=== PATIENT | female | born 1965 | race Caucasian/White ===

== ENCOUNTER 2018-09-17 22:25 | Observation (INO) ==
[2018-09-17 23:49] LABS: Bilirubin,Urine Negative (Negative); Blood,Urine Negative (Negative); Clarity,Urine Clear (Clear); Color,Urine Yellow (Yellow); Glucose,Urine (UA) Normal (Normal); Ketones,Urine Negative (Negative); Leukocyte Esterase,Urine Negative (Negative); Nitrite,Urine Negative (Negative); PH,Urine 6.5 pH Units (5.0-8.0); Protein,Urine Negative (Neg-Trace); Specific Gravity,Urine < 1.005 (1.010-1.025); Urobilinogen,Urine Normal (Normal)
[2018-09-18 00:30] LABS: Basophils # 0.1 K/mcL (0.0-0.2); Basophils % 0.7 %; Eosinophils # 0.2 K/mcL (0.0-0.6); Eosinophils % 1.5 %; Hematocrit 42.3 % (35.3-44.9); Hemoglobin 15.2 g/dL (11.5-15.4); Immature Granulocytes % 0.4 % (0-4); Lymphocytes # 1.6 K/mcL (0.6-4.6); Lymphocytes % 15.2 %; Mean Corpuscular HGB Conc 35.9 g/dL (31.6-35.5); Mean Corpuscular Hemoglobin 33.8 pg (28.0-33.3); Mean Platelet Volume 10.4 fL (9.4-12.4); Monocytes # 0.7 K/mcL (0.0-1.3); Monocytes % 6.6 %; Neutrophils # 8.1 K/mcL (1.6-8.9); Platelet Count 224 K/mcL (140-400); Red Cell Distribution Width 11.2 % (11.5-14.5); Segmented Neutrophils % 75.6 %
[2018-09-18] MEDS ORDERED: Ondansetron ODT 4 MG TAB.RAPDIS SL ONE (00:48)
[2018-09-18] MEDS ORDERED: OXYCODONE Oral CONC 10 MG/0.5 ML ORAL.SYG SL ONE (00:48)
[2018-09-18 00:50] LABS: Alanine Aminotransferase 16 Units/L (7-52); Albumin 4.2 g/dL (3.5-5.7); Albumin/Globulin Ratio 1.8 (1.1-2.2); Alkaline Phosphatase 101 Units/L (34-104); Aspartate Amino Transferase 17 Units/L (13-39); BUN/Creatinine Ratio 12 (6-26); Bilirubin,Direct 0.1 mg/dL (0.0-0.2); Bilirubin,Indirect 0.5 mg/dL (0.0-1.2); Bilirubin,Total 0.6 mg/dL (0.3-1.0); Blood Urea Nitrogen 6 mg/dL (6-20); Calcium 9.1 mg/dL (8.6-10.3); Carbon Dioxide 20 mEq/L (23-29); Chloride 93 mEq/L (98-107); Globulin 2.4 g/dL (2.4-3.5); Glucose 150 mg/dL (70-105); Lipase 16 Units/L (11-82); Osmolality,Calculated 252 (280-300); Potassium 4.1 mEq/L (3.5-5.1); Sodium 121 mEq/L (136-145); Total Protein 6.6 g/dL (6.4-8.9); eGFR For Non-African Americans > 60 (> 60)
--- NOTE | 2018-09-18 00:51 | Emergency Department Note ---
Disposition Clinical Impression: Hyponatremia Disposition: Admitted As Inpatient Condition: Good Time of Disposition: 02:45 General Adult HPI - General Chief complaint: ED General Medical Stated complaint: "Um Body Aches" Time Seen by Provider: 09/17/18 22:55 Source: patient Limitations: no limitations Nursing Notes Reviewed: Yes Vital Signs Reviewed: Yes - History of Present Illness HPI Narrative: 53-year-old female smoker presents with complaints of nausea, vomiting, fever, abdominal pain. She states symptoms started yesterday she had an episode of vomiting and is 102 fever. Today her vomiting and nausea have improved she only had 1 small episode this morning. However she started having body aches which prompted her visit to the emergency department. She does describe some abdominal bloating after eating, and mild abdominal pain. She mentioned she has had a worsening cough that has been dry. She does mention she is been increasing her fluids because she thinks this might be flu, and she has had increased urination, but she denies any flank pain dysuria, vaginal bleeding, diarrhea or bloody stools. Pain Scale: 7 - Related Data Home Medications Medication Instructions Recorded Confirmed Atorvastatin Calcium [Lipitor] 20 mg PO DAILY 03/03/16 09/18/18 Citalopram Hydrobromide [Celexa] 20 mg PO DAILY 03/03/16 09/18/18 Losartan [Cozaar] 25 mg PO DAILY 03/03/16 09/18/18 metFORMIN [Glucophage] 500 mg PO DAILY 03/03/16 09/18/18 Ibuprofen 400 mg PO BID 07/02/18 09/18/18 Turmeric Root 07/02/18 Meclizine [Antivert] 12.5 mg PO TID PRN 09/18/18 09/18/18 Omeprazole [PriLOSEC] 20 mg PO DAILY 09/18/18 09/18/18 Allergies Allergy/AdvReac Type Severity Reaction Status Date / Time No Known Allergies Allergy Verified 09/17/18 22:39 All systems ED: reviewed and negative except as stated. Review of Systems: As Per HPI Constitutional: Denies: fever, chills, weakness Eyes: Denies: vision change ENT ED: Reports: as per HPI, throat pain Cardiovascular: Denies: chest pain, palpitations Respiratory: Denies: cough, dyspnea, wheezes Gastrointestinal: Reports: as per HPI Genitourinary: Reports: as per HPI Musculoskeletal: Denies: back pain Integumentary: Denies: rash Neurological: Reports: as per HPI Psychiatric: Denies: anxiety Endocrine: Denies: fatigue Hematological/Lymphatic: Denies: easy bleeding Allergic/Immunologic: Denies: facial swelling Past Medical History - Past Medical History Medical history: Reports: diabetes, hypertension Psychiatric history: Reports: no psych history - Social History Smoking Status: Current every day smoker Smokeless Tobacco Status: No Alcohol use: Reports: occasionally Drug use: Reports: none Physical Exam - General Limitations: no limitations General appearance: alert, in no apparent distress - Head Head exam: normocephalic - Eye Eye exam: Present: EOMI - ENT ENT exam: mucous membranes moist - Neck Neck exam: Present: full ROM. Absent: lymphadenopathy - Chest Chest inspection: Present: symmetric chest wall rise - Respiratory Respiratory exam: Present: normal lung sounds bilaterally. Absent: respiratory distress - Cardiovascular Cardiovascular exam: Present: regular rate, normal rhythm - Abdominal Exam Abdominal exam: Present: soft, Non-Tender - Extremities Exam Extremities exam: Present: normal inspection, full ROM, normal capillary refill - Back Exam Back exam: Present: full ROM - Neurological Exam Neurological exam: Present: alert - Psychiatric Psychiatric exam: Present: normal affect, normal mood - Skin Skin exam: Present: warm, dry, intact, normal color. Absent: rash, cyanosis, diaphoresis Course Course Narrative: 53-year-old female presents with generalized body aches, and episode of nausea and vomiting yesterday, and 102 fever. She does mention she is currently n auseous and describes abdominal pressure and bloating and increased polyuria. Her vitals at triage hypertensive slightly, otherwise are within normal limits. Patient seen and examined. she appears uncomfortable but no acute distress. Patient was evaluated for right upper quadrant pain last year, she had unremarkable CT scan, and HIDA scan. She does mention she has had intermittent headaches, gradual in onset. I have ordered her pain medicines, and antiemetics. We will plan for repeat exam, blood work. Flu swab for muscle aches fever. CK ordered for muscle aches. - Reevaluation(s) Reevaluation #1: Patient's flu swab negative. No evidence of UTI. lab work shows sodium of 121, normal creatine kinase. Discussed with Dr. Evans, who advised for admission for hyponatremia. Fluids ordered. Time: 01:53 Reevaluation #2: Dr. Evans discussed patient with hospitalist Dr. Kern, who accepted patient. Nicotine patch ordered and toradol for headache. Time: 02:37 Vital Signs Temperature 97.8 F 09/17/18 22:39 Pulse Rate 87 09/17/18 22:39 Respiratory Rate 16 09/17/18 22:39 Blood Pressure 155/95 09/17/18 22:39 O2 Sat by Pulse Oximetry 96 09/17/18 22:39 Temperature 98 F 09/18/18 04:14 Pulse Rate 73 09/18/18 04:14 Respiratory Rate 16 09/18/18 04:14 Blood Pressure 158/82 09/18/18 04:14 O2 Sat by Pulse Oximetry 95 09/18/18 04:14 Oxygen Delivery Oxygen Delivery Room Air Medical Decision Making - MDM Narrative Medical decision making narrative: Laboratory Tests 09/17/18 09/18/18 09/18/18 23:34 00:05 00:05 WBC 10.8 RBC 4.50 Hgb 15.2 Hct 42.3 MCV 94.0 MCH 33.8 H MCHC 35.9 H RDW 11.2 L Plt Count 224 MPV 10.4 Immature Gran % 0.4 Seg Neutrophils % 75.6 Lymphocytes % 15.2 Monocytes % 6.6 Eosinophils % 1.5 Basophils % 0.7 Neutrophils # 8.1 Lymphocytes # 1.6 Monocytes # 0.7 Eosinophils # 0.2 Basophils # 0.1 Sodium 121 L Potassium 4.1 Chloride 93 L Carbon Dioxide 20 L BUN 6 Creatinine 0.49 L Est GFR ( Amer) > 60 Est GFR (Non-Af Amer) > 60 BUN/Creatinine Ratio 12 Glucose 150 H Calculated Osmolality 252 L Calcium 9.1 Total Bilirubin 0.6 Direct Bilirubin 0.1 Indirect Bilirubin 0.5 AST 17 ALT 16 Alkaline Phosphatase 101 Creatine Kinase 104 Serum Total Protein 6.6 Albumin 4.2 Globulin 2.4 Albumin/Globulin Ratio 1.8 Lipase 16 Urine Color Yellow Urine Clarity Clear Urine pH 6.5 Ur Specific [place] < 1.005 L Urine Protein Negative Urine Glucose (UA) Normal Urine Ketones Negative Urine Blood Negative Urine Nitrite Negative Urine Bilirubin Negative Urine Urobilinogen Normal Ur Leukocyte Esterase Negative Ur Culture Indicated? NO Chest X-Ray 09/18/18 00:46 IMPRESSION: Negative portable chest. D/ / Albin Talbot MD / Albin Talbot MD Interpreting Provider: Albin Talbot MD - Lab Data Lab results reviewed: Yes I reviewed the patient's lab results. Result diagrams: 09/18/18 00:05 09/18/18 00:05 Lab Results 09/17/18 09/17/18 09/17/18 Range/Units 23:34 23:34 23:34 WBC (4.3-11.1) K/mcL RBC (3.82-4.97) M/mcL Hgb (11.5-15.4) g/dL Hct (35.3-44.9) % MCV (83.0-100.0) fL MCH (28.0-33.3) pg MCHC (31.6-35.5) g/dL RDW (11.5-14.5) % Plt Count (140-400) K/mcL MPV (9.4-12.4) fL Immature Gran % (0-4) % Seg Neutrophils % % Lymphocytes % % Monocytes % % Eosinophils % % Basophils % % Neutrophils # (1.6-8.9) K/mcL Lymphocytes # (0.6-4.6) K/mcL Monocytes # (0.0-1.3) K/mcL Eosinophils # (0.0-0.6) K/mcL Basophils # (0.0-0.2) K/mcL Sodium (136-145) mEq/L Potassium (3.5-5.1) mEq/L Chloride (98-107) mEq/L Carbon Dioxide (23-29) mEq/L BUN (6-20) mg/dL Creatinine (0.60-1.20) mg/dL Est GFR ( Amer) (> 60) Est GFR (Non-Af Amer) (> 60) BUN/Creatinine Ratio (6-26) Glucose (70-105) mg/dL Calculated Osmolality (280-300) Calcium (8.6-10.3) mg/dL Total Bilirubin (0.3-1.0) mg/dL Direct Bilirubin (0.0-0.2) mg/dL Indirect Bilirubin (0.0-1.2) mg/dL AST (13-39) Units/L ALT (7-52) Units/L Alkaline Phosphatase (34-104) Units/L Creatine Kinase (30-223) Units/L Serum Total Protein (6.4-8.9) g/dL Albumin (3.5-5.7) g/dL Globulin (2.4-3.5) g/dL Albumin/Globulin Ratio (1.1-2.2) Lipase (11-82) Units/L Urine Color Yellow (Yellow) Urine Clarity Clear (Clear) Urine pH 6.5 (5.0-8.0) pH Units Ur Specific [place] < 1.005 L (1.010-1.025) Urine Protein Negative (Neg-Trace) mg/dL Urine Glucose (UA) Normal (Normal) mg/dL Urine Ketones Negative (Negative) mg/dL Urine Blood Negative (Negative) Urine Nitrite Negative (Negative) Urine Bilirubin Negative (Negative) Urine Urobilinogen Normal (Normal) mg/dL Ur Leukocyte Esterase Negative (Negative) Ur Culture Indicated? NO (NO) Urine Osmolality 173 L (300-1090) mOsm/kg Urine Creatinine 29 mg/dL Urine Sodium 36.9 mEq/L 09/18/18 09/18/18 Range/Units 00:05 00:05 WBC 10.8 (4.3-11.1) K/mcL RBC 4.50 (3.82-4.97) M/mcL Hgb 15.2 (11.5-15.4) g/dL Hct 42.3 (35.3-44.9) % MCV 94.0 (83.0-100.0) fL MCH 33.8 H (28.0-33.3) pg MCHC 35.9 H (31.6-35.5) g/dL RDW 11.2 L (11.5-14.5) % Plt Count 224 (140-400) K/mcL MPV 10.4 (9.4-12.4) fL Immature Gran % 0.4 (0-4) % Seg Neutrophils % 75.6 % Lymphocytes % 15.2 % Monocytes % 6.6 % Eosinophils % 1.5 % Basophils % 0.7 % Neutrophils # 8.1 (1.6-8.9) K/mcL Lymphocytes # 1.6 (0.6-4.6) K/mcL Monocytes # 0.7 (0.0-1.3) K/mcL Eosinophils # 0.2 (0.0-0.6) K/mcL Basophils # 0.1 (0.0-0.2) K/mcL Sodium 121 L (136-145) mEq/L Potassium 4.1 (3.5-5.1) mEq/L Chloride 93 L (98-107) mEq/L Carbon Dioxide 20 L (23-29) mEq/L BUN 6 (6-20) mg/dL Creatinine 0.49 L (0.60-1.20) mg/dL Est GFR ( Amer) > 60 (> 60) Est GFR (Non-Af Amer) > 60 (> 60) BUN/Creatinine Ratio 12 (6-26) Glucose 150 H (70-105) mg/dL Calculated Osmolality 252 L (280-300) Calcium 9.1 (8.6-10.3) mg/dL Total Bilirubin 0.6 (0.3-1.0) mg/dL Direct Bilirubin 0.1 (0.0-0.2) mg/dL Indirect Bilirubin 0.5 (0.0-1.2) mg/dL AST 17 (13-39) Units/L ALT 16 (7-52) Units/L Alkaline Phosphatase 101 (34-104) Units/L Creatine Kinase 104 (30-223) Units/L Serum Total Protein 6.6 (6.4-8.9) g/dL Albumin 4.2 (3.5-5.7) g/dL Globulin 2.4 (2.4-3.5) g/dL Albumin/Globulin Ratio 1.8 (1.1-2.2) Lipase 16 (11-82) Units/L Urine Color (Yellow) Urine Clarity (Clear) Urine pH (5.0-8.0) pH Units Ur Specific [place] (1.010-1.025) Urine Protein (Neg-Trace) mg/dL Urine Glucose (UA) (Normal) mg/dL Urine Ketones (Negative) mg/dL Urine Blood (Negative) Urine Nitrite (Negative) Urine Bilirubin (Negative) Urine Urobilinogen (Normal) mg/dL Ur Leukocyte Esterase (Negative) Ur Culture Indicated? (NO) Urine Osmolality (300-1090) mOsm/kg Urine Creatinine mg/dL Urine Sodium mEq/L Attestation Statement - Attestation Attestation: Dr. Evans note: Patient was seen in conjunction with KARLA Mak; please see his charting for complete documentation. I spent inhb-gb-dcin time with the patient and I agree with the patient's treatment and disposition. Progressive weakness and n/v for weeks; no focal neuro signs/sx; low Na+ noted; will require admission for treatment and further eval; accepted by Dr Greer s/p my conversation w/ him @ 2:20 a.m; condition improved; 1 liter of NS ordered;
[2018-09-18 01:05] LABS: Creatine Kinase 104 Units/L (30-223)
[2018-09-18] MEDS ORDERED: 0.9 % Sodium Chloride 1,000 ML IVC ONE ×2 (01:46→04:59)
[2018-09-18] MEDS ORDERED: Nicotine 7 MG PATCH.TD24 TD ONE (02:17)
[2018-09-18] MEDS ORDERED: Ketorolac 15 MG/ML VIAL IM ONE (02:38)
--- NOTE | 2018-09-18 03:27 | Internal Med History&Physical ---
<Paolo Ruiz - Last Filed: 09/18/18 05:29> Date of Encounter: 09/18/18 Time of Encounter: 03:57 Internal Medicine - H&P: HPI Admitted From: Emergency Dept History of present illness: 53-year-old female presenting with fever, abdominal pain, nausea, and vomiting. She has a history of diabetes, hypertension, appendectomy. Patient states symptoms started on Monday with nausea, vomiting, and abdominal pain. She had a temperature of 102 on Monday which resolved after taking aspirin. Patient states that her abdominal pain is located in the upper quadrants, with the right quadrant being more tender. Pain is rated a 10 out of 10 in a bandlike distribution. She has also endorsing pain in the right lower quadrants close to the right inguinal crease radiating to the right lower back. Patient denies any urinary symptoms including urinary frequency, urgency, pain with urination. The pain in this area is rated a 7 out of 10. Patient is hyponatremic at 121, urine osmolality 173, urine creatinine 29, urine sodium 36.9. An EGD chest x-ray was done showing no acute pathology. Urinalysis was negative for pathology. Influenza antigens are negative. Past Med Surg Social Fam HX - Past Medical History Medical history: diabetes, hypertension Psychiatric history: no psych history - Social History Smoking Status: Current every day smoker Smokeless Tobacco Status: No Alcohol use: occasionally Drug use: none Internal Medicine - H&P: Meds Atorvastatin Calcium [Lipitor] 20 mg PO DAILY 03/03/16 [History] Citalopram Hydrobromide [Celexa] 20 mg PO DAILY 03/03/16 [History] Losartan [Cozaar] 25 mg PO DAILY 03/03/16 [History] metFORMIN [Glucophage] 500 mg PO DAILY 03/03/16 [History] Ibuprofen 400 mg PO BID 07/02/18 [History] Turmeric Root 07/02/18 [History] Meclizine [Antivert] 12.5 mg PO TID PRN 09/18/18 [History] Omeprazole [PriLOSEC] 20 mg PO DAILY 09/18/18 [History] Allergy/AdvReac Type Severity Reaction Status Date / Time No Known Allergies Allergy Verified 09/17/18 22:39 All Systems PM: A 10-system review of systems was performed and is negative for pertinent findings except as documented above in the HPI. - Constitutional Constitutional: chills, fatigue, fever(s), malaise, weakness - Cardiovascular Cardiovascular ROS IM: no chest pain, no irregular heart rhythm, no palpitations - Respiratory Respiratory: cough (Patient has been having a cough for several weeks which she believes is unrelated to the current illness), no dyspnea, no pain on inspiration - Gastrointestinal Gastrointestinal: abdominal pain, no constipation, no diarrhea - Genitourinary Genitourinary: no hematuria, no urinary frequency, no urinary incontinence, no urinary urgency - Constitutional Vitals: Temp Pulse Resp BP Pulse Ox 97.8 F 67 18 148/87 95 09/17/18 22:39 09/18/18 02:55 09/18/18 02:55 09/18/18 02:55 09/18/18 02:55 General appearance: Present: cooperative, mild distress, A&O X 3, pleasant Exam: . - Head Head exam: Present: atraumatic, normal inspection - Eye Eye exam: Present: EOMI, normal appearance - Neck Neck exam general surgery: Present: supple, trachea midline - Respiratory Respiratory exam: Present: CTAB - Cardiovascular Cardiovascular exam: Present: RRR, +S1, +S2 - GI/Abdominal GI/Abdominal exam: Present: normal bowel sounds, soft, tenderness (Tenderness to palpation right upper quadrant and left upper quadrant. Right lower quadrant close to the right inguinal crease that radiates to the right lower back ). Absent: mass - Extremities Exam Extremities exam: Present: normal capillary refill, warm - Neurological Exam Neurological exam: Present: no focal deficits - Skin Skin exam: Present: dry, intact, warm Internal Med - H&P Results - Labs CBC & Chem 7: 09/18/18 00:05 09/18/18 00:05 Labs: Short CBC 09/18/18 Range/Units 00:05 WBC 10.8 (4.3-11.1) K/mcL Hgb 15.2 (11.5-15.4) g/dL Hct 42.3 (35.3-44.9) % Plt Count 224 (140-400) K/mcL Neutrophils # 8.1 (1.6-8.9) K/mcL BMP 09/18/18 00:05 Sodium 121 L Potassium 4.1 Chloride 93 L Carbon Dioxide 20 L BUN 6 Creatinine 0.49 L Glucose 150 H Calcium 9.1 Liver Function 09/18/18 Range/Units 00:05 Total Bilirubin 0.6 (0.3-1.0) mg/dL Direct Bilirubin 0.1 (0.0-0.2) mg/dL AST 17 (13-39) Units/L ALT 16 (7-52) Units/L Alkaline Phosphatase 101 (34-104) Units/L Albumin 4.2 (3.5-5.7) g/dL Urine 09/17/18 Range/Units 23:34 Urine Color Yellow (Yellow) Urine Clarity Clear (Clear) Urine pH 6.5 (5.0-8.0) pH Units Ur Specific [place] < 1.005 L (1.010-1.025) Urine Protein Negative (Neg-Trace) mg/dL Urine Glucose (UA) Normal (Normal) mg/dL - Impressions ITS Impressions Chest X-Ray 09/18/18 00:46 IMPRESSION: Negative portable chest. D/ / Albin Talbot MD / Albin Talbot MD Interpreting Provider: Albin Talbot MD - Assessment and plan (1) Abdominal pain Current Visit: Yes Status: Acute Assessment and plan: Patient presenting with upper quadrant abdominal pain especially in the right upper quadrant. Pain rated 10 on a 10, worsened with food. Patient still has her gallbladder. Lipase is normal. Considering gallbladder pathology. Patient also has right lower quadrant abdominal pain with history of abdominal surgery. Does not have her appendix. - CT abdomen without contrast ordered. - For pain management ordered oxycodone. Qualifiers: Qualified Code(s): R10.9 - Unspecified abdominal pain (2) DVT prophylaxis Current Visit: Yes Status: Acute Assessment and plan: Subcutaneous heparin (3) Hyponatremia Current Visit: Yes Status: Acute Assessment and plan: Patient has a sodium of 121, urine osmolality 173, urine creatinine 29, urine sodium 36.9. Fractional excretion of 0.5%. Was given 1 L normal saline and ED. -We will see how patient responds to liter of normal saline at ED. BMP ordered for 5 AM and 9 AM. - Trend BMP, urine sodium, urine osmolality - If repeat urine sodium is less than 40 and urine osmolality less than 100 patient has hypovolemic hyponatremia, and we will bolus another liter of normal saline. - If urine sodiums greater than 40 and urine osmolality greater than 100 we will evaluate for glucocorticoid deficiency with a.m. cortisol and ACTH stimulation test, and for hypothyroidism with TSH. - Time Spent With Patient Total time spent is greater than 50% in coordination of care (as documented) at patient's floor/unit and/or counseling patient: <Eliel Holloway Taty - Last Filed: 09/18/18 07:45> Date of Encounter: 09/18/18 Internal Medicine - H&P: HPI History of present illness: Ms. Brady is a 53 year old female All Systems PM: A 10-system review of systems was performed and is negative for pertinent findings except as documented above in the HPI. - Constitutional Vitals: Temp Pulse Resp BP Pulse Ox 98.2 F 74 17 103/61 94 09/18/18 07:27 09/18/18 07:27 09/18/18 07:27 09/18/18 07:27 09/18/18 07:27 Internal Med - H&P Results - Labs CBC & Chem 7: 09/18/18 00:05 09/18/18 00:05 Labs: Short CBC 09/18/18 Range/Units 00:05 WBC 10.8 (4.3-11.1) K/mcL Hgb 15.2 (11.5-15.4) g/dL Hct 42.3 (35.3-44.9) % Plt Count 224 (140-400) K/mcL Neutrophils # 8.1 (1.6-8.9) K/mcL BMP 09/18/18 00:05 Sodium 121 L Potassium 4.1 Chloride 93 L Carbon Dioxide 20 L BUN 6 Creatinine 0.49 L Glucose 150 H Calcium 9.1 Liver Function 09/18/18 Range/Units 00:05 Total Bilirubin 0.6 (0.3-1.0) mg/dL Direct Bilirubin 0.1 (0.0-0.2) mg/dL AST 17 (13-39) Units/L ALT 16 (7-52) Units/L Alkaline Phosphatase 101 (34-104) Units/L Albumin 4.2 (3.5-5.7) g/dL Urine 09/17/18 Range/Units 23:34 Urine Color Yellow (Yellow) Urine Clarity Clear (Clear) Urine pH 6.5 (5.0-8.0) pH Units Ur Specific [place] < 1.005 L (1.010-1.025) Urine Protein Negative (Neg-Trace) mg/dL Urine Glucose (UA) Normal (Normal) mg/dL - Impressions ITS Impressions Chest X-Ray 09/18/18 00:46 IMPRESSION: Negative portable chest. D/ / Albin Talbot MD / Albin Talbot MD Interpreting Provider: Albin Talbot MD - Time Spent With Patient Total time spent is greater than 50% in coordination of care (as documented) at patient's floor/unit and/or counseling patient: - Attending Attestation I saw and evaluated the patient. I reviewed the residents note, performed my own physical examination and agree with findings and plan as documented in the residents note. Patient seen and examined on 09/18/18. Patient presents with hyponatremia, and abdominal pain. Pain worse with food, lipase within normal limits. Will obtain CT this morning. Follow up results. Will also correct sodium carefully, will need repeat labs after IV fluids given in the ER. Patient currently not in distress, pain well controlled. Patient also diabetic, will monitor sugars Q6H, low dose sliding scale insulin as she is currently NPO due to nasuea. Continue to monitor.
[2018-09-18] MEDS ORDERED: Ondansetron 4 MG/2 ML VIAL IVP PRN (04:06)
[2018-09-18] MEDS ORDERED: Naloxone 0.4 MG/ML INJ IVP PRN (04:58)
[2018-09-18] MEDS ORDERED: D5% in Water 1,000 ML IVC PRN (05:00)
[2018-09-18] MEDS ORDERED: Dextrose Gel 15 GM/37.5 ML TUBE PO PRN ×2 (05:00)
[2018-09-18] MEDS ORDERED: *HR* Dextrose 50 % in Water (Syg) 50 ML SYRINGE IVP PRN (05:00)
[2018-09-18 05:05] LABS: Sodium, Urine 36.9 mEq/L
[2018-09-18] MEDS: Insulin LISPRO 300 UNITS/3 ML VIAL SQ SCH ×3 (06:34→17:04)
[2018-09-18] MEDS: *HR* Heparin 5,000 UNIT/ML VIAL SQ SCH ×2 (06:34→17:05)
[2018-09-18] MEDS ORDERED: 0.9 % Sodium Chloride 1,000 ML IVC SCH (08:00)
--- NOTE | 2018-09-18 08:05 | Event Note ---
Date of Encounter: 09/18/18 Time of Encounter: 08:00 53-year-old female presenting with fever, abdominal pain, nausea, and vomiting Plan Abd pain of unclear etiology. LFTs, Lipase WNL. CT abdomen and ultrasound negative. Patient says pain is chronic and has been experiencing it intermittently since 1998 post hysterectomy. Supportive care. Outpatient f/u Hyponatremia. Sodium on admission was 121. Obtain repeat TSH. Continue fluids with normal saline. Monitor sodium q 8-12hr
[2018-09-18] MEDS: OXYCODONE Oral CONC 10 MG/0.5 ML ORAL.SYG SL PRN ×2 (08:11→13:54)
[2018-09-18 09:10] LABS: BUN/Creatinine Ratio 10 (6-26); Blood Urea Nitrogen 6 mg/dL (6-20); Carbon Dioxide 25 mEq/L (23-29); Chloride 95 mEq/L (98-107); Glucose 132 mg/dL (70-105); Osmolality,Calculated 259 (280-300); Potassium 4.4 mEq/L (3.5-5.1); Sodium 125 mEq/L (136-145); eGFR For Non-African Americans > 60 (> 60)
[2018-09-18] MEDS ORDERED: Acetaminophen 325 MG TABLET PO PRN (17:29)
[2018-09-18] MEDS ORDERED: Insulin LISPRO 300 UNITS/3 ML VIAL SQ SCH (21:00)
[2018-09-19 04:56] LABS: Basophils # 0.1 K/mcL (0.0-0.2); Basophils % 1.3 %; Eosinophils # 0.2 K/mcL (0.0-0.6); Eosinophils % 3.1 %; Hematocrit 45.6 % (35.3-44.9); Hemoglobin 15.5 g/dL (11.5-15.4); Immature Granulocytes % 0.3 % (0-4); Lymphocytes # 1.7 K/mcL (0.6-4.6); Lymphocytes % 25.1 %; Mean Platelet Volume 10.9 fL (9.4-12.4); Monocytes # 0.7 K/mcL (0.0-1.3); Monocytes % 9.9 %; Neutrophils # 4.1 K/mcL (1.6-8.9); Platelet Count 218 K/mcL (140-400); Red Cell Distribution Width 11.5 % (11.5-14.5); Segmented Neutrophils % 60.3 %
[2018-09-19 05:22] LABS: BUN/Creatinine Ratio 16 (6-26); Blood Urea Nitrogen 11 mg/dL (6-20); Calcium 9.2 mg/dL (8.6-10.3); Carbon Dioxide 25 mEq/L (23-29); Chloride 106 mEq/L (98-107); Glucose 128 mg/dL (70-105); Magnesium 2.4 mg/dL (1.6-2.6); Osmolality,Calculated 281 (280-300); Phosphorous 4.7 mg/dL (2.7-4.5); Potassium 4.7 mEq/L (3.5-5.1); Sodium 135 mEq/L (136-145); eGFR For Non-African Americans > 60 (> 60)
[2018-09-19 06:59] VITALS: BP 109/71
[2018-09-19] MEDS: *HR* Heparin 5,000 UNIT/ML VIAL SQ SCH (07:28)
[2018-09-19] MEDS ORDERED: Insulin LISPRO 300 UNITS/3 ML VIAL SQ SCH ×2 (07:30)
[2018-09-19] MEDS ORDERED: Nicotine 7 MG PATCH.TD24 TD SCH (09:00)
--- NOTE | 2018-09-19 11:55 | Discharge Summary ---
Date of Encounter: 09/19/18 Time of Encounter: 11:55 - Discharge Diagnosis (1) Abdominal pain Priority: Primary Status: Acute Assessment and Plan: 53-year-old female presenting with fever, abdominal pain, nausea, and vomiting. She has a history of diabetes, hypertension, appendectomy. Patient states symptoms started on Monday with nausea, vomiting, and abdominal pain.Patient presenting with upper quadrant abdominal pain especially in the right upper quadrant. She had a CT abdomen and abdominal ultrasound done that both came back negative for any acute findings. LFTs/ lipase were also WNL. Patient notes pain is chronic and has been having it intermittently since she had a hysterectomy about 20 years ago. She has been referred to GI as an outpatient. She was also noted to be hyponatremic on admission likely secondary to dehydration and this was corrected with IV fluids Qualifiers: Qualified Code(s): R10.9 - Unspecified abdominal pain (2) Hyponatremia Priority: Primary Status: Acute Assessment and Plan: Patient has a sodium of 121, urine osmolality 173, urine creatinine 29, urine sodium 36.9. Fractional excretion of 0.5%. Was given 1 L normal saline and ED. -We will see how patient responds to liter of normal saline at ED. BMP ordered for 5 AM and 9 AM. - Trend BMP, urine sodium, urine osmolality - If repeat urine sodium is less than 40 and urine osmolality less than 100 patient has hypovolemic hyponatremia, and we will bolus another liter of normal saline. - If urine sodiums greater than 40 and urine osmolality greater than 100 we will evaluate for glucocorticoid deficiency with a.m. cortisol and ACTH stimulation test, and for hypothyroidism with TSH. (3) DVT prophylaxis Priority: Primary Status: Acute Assessment and Plan: Subcutaneous heparin Hospital course: Ms. Brady is a 53 year old female - Time Spent with Patient Total time spent providing and/or coordinating discharge services: - Discharge Medications Home Medications: Atorvastatin Calcium [Lipitor] 20 mg PO DAILY 03/03/16 [History] Citalopram Hydrobromide [Celexa] 20 mg PO DAILY 03/03/16 [History] Losartan [Cozaar] 25 mg PO DAILY 03/03/16 [History] metFORMIN [Glucophage] 500 mg PO DAILY 03/03/16 [History] Ibuprofen [Motrin] 800 mg PO Q8HR PRN 07/02/18 [History] Albuterol Sulfate [Albuterol Inhaler] 2 puff IH Q6H PRN 09/18/18 [History] Omeprazole [PriLOSEC] 20 mg PO DAILY 09/18/18 [History] Allergies/Adverse Reactions: Allergy/AdvReac Type Severity Reaction Status Date / Time No Known Allergies Allergy Verified 09/17/18 22:39 Date of admission: 09/18/18 03:41 Primary care physician: Kevan Braswell MD - Constitutional Vitals: Temp Pulse Resp BP Pulse Ox 98.1 F 79 16 109/71 92 09/19/18 06:53 09/19/18 06:53 09/19/18 06:53 09/19/18 06:53 09/19/18 06:53 General appearance: Present: cooperative, mild distress, A&O X 3, pleasant Exam: Gen - Awake, alert, oriented x 3, no acute distress HEENT - NCAT, PERRLA, EOMI, hearing grossly intact, oropharynx benign CV - RRR, normal S1 and S2, no M/R/G, no BLE edema Resp - Normal WOB, CTAB, no W/R/R GI - Soft, NT/ND, no masses, normal bowel sounds, Skin - Warm, dry, no rashes/lesions/ulcers Psych - Normal mood and affect, no depression or anxiety - Patient Status Disposition: Home, Self-Care Condition: Good - Discharge Instructions Follow Up With: [facility] [Provider Group] (web request has been sent. However if you do not hear from their office by the time of your appointment with your PCP please have your PCP refer you also to speed up the time frame. Thank you!) Kevan Braswell MD [Primary Care Provider] - 09/25/18 2:00 pm (If you do not hear from GI office by the time of this appointment please ask them for a referral to get you in faster. Thank you!)
== END 2018-09-19 11:45 | disposition home or self-care (01) ==
LOC: EMEROOARM 22:25 → 2ANU 22:25
PROVIDERS: ADMIT Pediatrics; ATTEND Pediatrics

== ENCOUNTER 2019-05-14 19:17 | Observation (INO) ==
--- NOTE | 2019-05-14 19:29 | Emergency Department Note ---
Disposition Clinical Impression: History of pancreatic cancer, Leukocytosis, Tachycardia, Hypotension, Elevated troponin, Weakness, Chronic diarrhea, Diabetes mellitus Disposition: Admitted As Inpatient Time of Disposition: 00:07 General Adult HPI - General Stated complaint: Diziness Time Seen by Provider: 05/14/19 19:29 - History of Present Illness HPI Narrative: 53-year-old female reports emergency department complaining of weakness. The patient describes some generalized tingling. She has a known history of pancreatic cancer and is undergoing chemotherapy. The patient has chronic nonbloody diarrhea. She has been feeling weaker over the last several days. She is not anticoagulated. There is no history of bleeding. The patient denies chest pain or shortness of breath no abdominal pain or vomiting. She has had no difficulty moving the arms or legs independently. No fevers coughs rashes or syncope. No headache neck stiffness convulsion or confusion no unilateral arm or leg weakness or numbness or speech or facial droop. The patient feels she may be dehydrated. She has had electrolyte imbalance in the past particularly when under chemotherapy. She is known to be diabetic. She reports her glucose is been about 110. - Related Data Home Medications Medication Instructions Recorded Confirmed Atorvastatin Calcium [Lipitor] 20 mg PO DAILY 03/03/16 09/18/18 Citalopram Hydrobromide [Celexa] 20 mg PO DAILY 03/03/16 09/18/18 Losartan [Cozaar] 25 mg PO DAILY 03/03/16 09/18/18 metFORMIN [Glucophage] 500 mg PO DAILY 03/03/16 09/18/18 Ibuprofen [Motrin] 800 mg PO Q8HR PRN 07/02/18 09/18/18 Albuterol Sulfate [Proventil 2 puff IH Q6H PRN 09/18/18 09/18/18 Inhaler] Omeprazole [PriLOSEC] 20 mg PO DAILY 09/18/18 09/18/18 Previous Rx's Medication Instructions Recorded Cyclobenzaprine [Flexeril] 10 mg PO TID #15 tablet 12/04/18 Diclofenac Sodium [Voltaren] 4 gm TP QID #100 gm 12/04/18 PredniSONE [Deltasone] 20 mg PO DAILY #12 tablet 12/04/18 Allergies Allergy/AdvReac Type Severity Reaction Status Date / Time No Known Allergies Allergy Verified 12/04/18 11:07 All systems ED: reviewed and negative except as stated. Past Medical History - Past Medical History Medical history: Reports: diabetes, hypertension, other Surgical history: Reports: appendectomy, hysterectomy Psychiatric history: Reports: no psych history - Social History Smoking Status: Current every day smoker Smokeless Tobacco Status: No Alcohol use: Reports: recent Drug use: Reports: none Physical Exam - General Limitations: no limitations General appearance: alert, in no apparent distress - Head Head exam: normocephalic (The patient is wearing a hat.) - Eye Eye exam: Present: normal appearance, PERRL, EOMI. Absent: scleral icterus, conjunctival injection, nystagmus - ENT ENT exam: normal exam, normal oropharynx, mucous membranes moist, TM's normal bilaterally, normal external ear exam - Neck Neck exam: Present: normal inspection, full ROM, trachea midline - Chest Chest inspection: Present: symmetric chest wall rise. Absent: tenderness - Respiratory Respiratory exam: Present: normal lung sounds bilaterally. Absent: respiratory distress, prolonged expiratory phase - Cardiovascular Cardiovascular exam: Present: normal rhythm, tachycardia - Abdominal Exam Abdominal exam: Present: soft, Non-Tender, normal bowel sounds. Absent: tenderness, distention, guarding, rebound, rigidity - Extremities Exam Extremities exam: Present: normal inspection, full ROM, normal capillary refill. Absent: tenderness, pedal edema, joint swelling, calf tenderness - Expanded Lower Extremity Exam Neurovascular/Tendon exam: Present: normal capillary refill. Absent: motor deficit, sensory deficit, tendon deficit, extremity cold to touch, pallor - Back Exam Back exam: Present: normal inspection, full ROM. Absent: tenderness, CVA tenderness (R), CVA tenderness (L), vertebral tenderness - Neurological Exam Neurological exam: Present: alert, oriented X3, CN II-XII intact. Absent: motor sensory deficit - Psychiatric Psychiatric exam: Present: normal affect, normal mood - Skin Skin exam: Present: warm, dry, intact, normal color Course Vital Signs Temperature 98.9 F 05/14/19 19:25 Pulse Rate 111 05/14/19 19:25 Respiratory Rate 18 05/14/19 19:25 Blood Pressure 97/72 05/14/19 19:25 O2 Sat by Pulse Oximetry 95 05/14/19 19:25 Temperature 98.9 F 05/14/19 19:25 Pulse Rate 99 05/14/19 21:12 Respiratory Rate 17 05/14/19 21:12 Blood Pressure 98/70 05/14/19 21:12 O2 Sat by Pulse Oximetry 98 05/14/19 21:12 Oxygen Delivery Oxygen Delivery Room Air Medical Decision Making - [facility] Narrative Medical decision making narrative: The patient has a known history of pancreatic cancer, she has been under chemotherapy. She is diabetic. The patient's white blood cell count is 35,000 markedly elevated compared to prior. She has been somewhat tachycardic and hypotensive in the emergency department. Blood cultures were sent. She was treated with IV fluids, broad-spectrum antibiotics were initiated. Chest x-ray shows no acute disease. Her urinalysis shows no significant infectious change. EKG, chest x-ray, and other laboratory studies reviewed. Minimal elevation in troponin. The patient does not describe chest pain. As a precaution aspirin was ordered. Based on the patient's known malignancy, tachycardia, hypotension, notable leukocytosis, immunosuppression secondary to chemotherapy, diabetes mellitus, elevated troponin and general weakness I thought it would be appr opriate to admit the patient to the hospital. The patient is agreeable. I discussed the case with the hospitalist on-call who has accepted the patient to his care. CT abdomen and pelvis were ordered as a precaution. Stool studies have been ordered. The patient does not describe a headache. She does not appear to be meningismal. I do not highly suspect meningitis as the primary source for potential sepsis. - Lab Data Lab results reviewed: Yes I reviewed the patient's lab results. Result diagrams: 05/14/19 20:10 05/14/19 20:10 Lab Results 05/14/19 05/14/19 05/14/19 Range/Units 19:44 20:10 20:10 WBC 35.0 H* (4.3-11.1) K/mcL RBC 4.13 (3.82-4.97) M/mcL Hgb 13.8 (11.5-15.4) g/dL Hct 39.7 (35.3-44.9) % MCV 96.1 (83.0-100.0) fL MCH 33.4 H (28.0-33.3) pg MCHC 34.8 (31.6-35.5) g/dL RDW 11.8 (11.5-14.5) % Plt Count 203 (140-400) K/mcL MPV 11.3 (9.4-12.4) fL Seg Neutrophils % 70.0 % Band Neutrophils % 22.0 H (0-4) % Lymphocytes % 2.0 % Monocytes % 4.0 % Eosinophils % 2.0 % Neutrophils # 32.2 H (1.6-8.9) K/mcL Lymphocytes # 0.7 (0.6-4.6) K/mcL Monocytes # 1.4 H (0.0-1.3) K/mcL Eosinophils # 0.7 H (0.0-0.6) K/mcL Sodium 127 L (136-145) mEq/L Potassium 3.6 (3.5-5.1) mEq/L Chloride 97 L (98-107) mEq/L Carbon Dioxide 22 L (23-29) mEq/L BUN 9 (6-20) mg/dL Creatinine 0.52 L (0.60-1.20) mg/dL Est GFR ( Amer) > 60 (> 60) Est GFR (Non-Af Amer) > 60 (> 60) BUN/Creatinine Ratio 17 (6-26) Glucose 269 H (70-105) mg/dL Calculated Osmolality 272 L (280-300) Lactic Acid (0.5-2.2) mmol/L Calcium 8.9 (8.6-10.3) mg/dL Total Bilirubin 0.4 (0.3-1.0) mg/dL Direct Bilirubin 0.1 (0.0-0.2) mg/dL Indirect Bilirubin 0.3 (0.0-1.2) mg/dL AST 12 L (13-39) Units/L ALT 16 (7-52) Units/L Alkaline Phosphatase 163 H (34-104) Units/L Troponin I 0.05 H* (< 0.04) ng/mL C-Reactive Protein 11 H (Less than 10) mg/L Serum Total Protein 6.3 L (6.4-8.9) g/dL Albumin 3.8 (3.5-5.7) g/dL Globulin 2.5 (2.4-3.5) g/dL Albumin/Globulin Ratio 1.5 (1.1-2.2) Lipase 7 L (11-82) Units/L Urine Color Yellow (Yellow) Urine Clarity Clear (Clear) Urine pH 6.0 (5.0-8.0) pH Units Ur Specific [place] 1.015 (1.010-1.025) Urine Protein Negative (Neg-Trace) mg/dL Urine Glucose (UA) 250 H (Normal) mg/dL Urine Ketones Negative (Negative) mg/dL Urine Blood Negative (Negative) Urine Nitrite Negative (Negative) Urine Bilirubin Negative (Negative) Urine Urobilinogen Normal (Normal) mg/dL Ur Leukocyte Esterase Negative (Negative) Ur Culture Indicated? NO (NO) 05/14/19 Range/Units 20:14 WBC (4.3-11.1) K/mcL RBC (3.82-4.97) M/mcL Hgb (11.5-15.4) g/dL Hct (35.3-44.9) % MCV (83.0-100.0) fL MCH (28.0-33.3) pg MCHC (31.6-35.5) g/dL RDW (11.5-14.5) % Plt Count (140-400) K/mcL MPV (9.4-12.4) fL Seg Neutrophils % % Band Neutrophils % (0-4) % Lymphocytes % % Monocytes % % Eosinophils % % Neutrophils # (1.6-8.9) K/mcL Lymphocytes # (0.6-4.6) K/mcL Monocytes # (0.0-1.3) K/mcL Eosinophils # (0.0-0.6) K/mcL Sodium (136-145) mEq/L Potassium (3.5-5.1) mEq/L Chloride (98-107) mEq/L Carbon Dioxide (23-29) mEq/L BUN (6-20) mg/dL Creatinine (0.60-1.20) mg/dL Est GFR ( Amer) (> 60) Est GFR (Non-Af Amer) (> 60) BUN/Creatinine Ratio (6-26) Glucose (70-105) mg/dL Calculated Osmolality (280-300) Lactic Acid 1.0 (0.5-2.2) mmol/L Calcium (8.6-10.3) mg/dL Total Bilirubin (0.3-1.0) mg/dL Direct Bilirubin (0.0-0.2) mg/dL Indirect Bilirubin (0.0-1.2) mg/dL AST (13-39) Units/L ALT (7-52) Units/L Alkaline Phosphatase (34-104) Units/L Troponin I (< 0.04) ng/mL C-Reactive Protein (Less than 10) mg/L Serum Total Protein (6.4-8.9) g/dL Albumin (3.5-5.7) g/dL Globulin (2.4-3.5) g/dL Albumin/Globulin Ratio (1.1-2.2) Lipase (11-82) Units/L Urine Color (Yellow) Urine Clarity (Clear) Urine pH (5.0-8.0) pH Units Ur Specific [place] (1.010-1.025) Urine Protein (Neg-Trace) mg/dL Urine Glucose (UA) (Normal) mg/dL Urine Ketones (Negative) mg/dL Urine Blood (Negative) Urine Nitrite (Negative) Urine Bilirubin (Negative) Urine Urobilinogen (Normal) mg/dL Ur Leukocyte Esterase (Negative) Ur Culture Indicated? (NO) - Radiology Data Radiology results reviewed: Yes I reviewed the patient's radiology results.
[2019-05-14] MEDS ORDERED: 0.9 % Sodium Chloride 1,000 ML IVC ONE ×2 (19:37→22:24)
[2019-05-14 19:58] LABS: Bilirubin,Urine Negative (Negative); Blood,Urine Negative (Negative); Clarity,Urine Clear (Clear); Color,Urine Yellow (Yellow); Glucose,Urine (UA) 250 mg/dL (Normal); Ketones,Urine Negative (Negative); Leukocyte Esterase,Urine Negative (Negative); Nitrite,Urine Negative (Negative); Protein,Urine Negative (Neg-Trace); Specific Gravity,Urine 1.015 (1.010-1.025); Urobilinogen,Urine Normal (Normal)
[2019-05-14 20:34] LABS: Mean Platelet Volume 11.3 fL (9.4-12.4); Red Cell Distribution Width 11.8 % (11.5-14.5)
[2019-05-14 20:35] LABS: Hematocrit 39.7 % (35.3-44.9); Hemoglobin 13.8 g/dL (11.5-15.4); Mean Corpuscular HGB Conc 34.8 g/dL (31.6-35.5); Mean Corpuscular Hemoglobin 33.4 pg (28.0-33.3); Mean Corpuscular Volume 96.1 fL (83.0-100.0); Monocytes # 1.4 K/mcL (0.0-1.3); Platelet Count 203 K/mcL (140-400); Red Blood Count 4.13 M/mcL (3.82-4.97)
[2019-05-14 20:56] LABS: Eosinophils # 0.7 K/mcL (0.0-0.6); Lymphocytes # 0.7 K/mcL (0.6-4.6); Neutrophils # 32.2 K/mcL (1.6-8.9)
[2019-05-14 20:57] LABS: Alanine Aminotransferase 16 Units/L (7-52); Albumin 3.8 g/dL (3.5-5.7); Albumin/Globulin Ratio 1.5 (1.1-2.2); Alkaline Phosphatase 163 Units/L (34-104); Aspartate Amino Transferase 12 Units/L (13-39); BUN/Creatinine Ratio 17 (6-26); Bilirubin,Direct 0.1 mg/dL (0.0-0.2); Bilirubin,Indirect 0.3 mg/dL (0.0-1.2); Bilirubin,Total 0.4 mg/dL (0.3-1.0); Blood Urea Nitrogen 9 mg/dL (6-20); C-Reactive Protein 11 mg/L (Less than 10); Calcium 8.9 mg/dL (8.6-10.3); Carbon Dioxide 22 mEq/L (23-29); Chloride 97 mEq/L (98-107); Globulin 2.5 g/dL (2.4-3.5); Glucose 269 mg/dL (70-105); Lipase 7 Units/L (11-82); Osmolality,Calculated 272 (280-300); Potassium 3.6 mEq/L (3.5-5.1); Sodium 127 mEq/L (136-145); Total Protein 6.3 g/dL (6.4-8.9); Troponin I 0.05 ng/mL (< 0.04); eGFR For African Americans > 60 (> 60); eGFR For Non-African Americans > 60 (> 60)
[2019-05-14] MEDS ORDERED: Isovue-370 500 ML BOTTLE IVP ONE (22:55)
[2019-05-14] MEDS ORDERED: Piperacillin/Tazobactam 3.375 GM in 0.9 % Sodium Chloride Mini Bag 100 ML IVPB ONE (22:57)
[2019-05-14] MEDS ORDERED: Vancomycin (wt based) 1,000 MG VIAL IV ONE (22:57)
[2019-05-14] MEDS ORDERED: Aspirin 325 MG TABLET PO ONE (23:02)
[2019-05-14] MEDS ORDERED: Nicotine 14 MG PATCH.TD24 TD ONE (23:42)
[2019-05-14] MEDS ORDERED: Acetaminophen 325 MG TABLET PO PRN (23:43)
[2019-05-14] MEDS ORDERED: Dextrose Gel 15 GM/37.5 ML TUBE PO PRN ×2 (23:43)
[2019-05-14] MEDS ORDERED: *HR* OxyCODONE Immed Rel 5 MG TABLET PO PRN (23:43)
[2019-05-14] MEDS ORDERED: Ipratropium/Albuterol Neb 3 ML IH PRN (23:43)
[2019-05-14] MEDS ORDERED: traMADol 50 MG TABLET PO PRN (23:43)
[2019-05-14] MEDS ORDERED: Naloxone 0.4 MG/ML INJ IVP PRN (23:43)
[2019-05-14] MEDS ORDERED: *HR* Dextrose 50 % in Water (Syg) 50 ML SYRINGE IVP PRN (23:43)
[2019-05-14] MEDS ORDERED: 0.9 % Sodium Chloride 1,000 ML IVC SCH (23:45)
[2019-05-15] MEDS ORDERED: Ipratropium/Albuterol Neb 3 ML IH ONE
--- NOTE | 2019-05-15 00:04 | Internal Med History&Physical ---
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 She underwent her 2nd session last Monday and on Monday started to feel weak and somewhat dizzy. Her generalized malaise continued to worsen and today felt tingling in all her extremities. She had no focal deficits or loss of consciousness. She denies nausea, vomiting, fever, chills and dysuria. She does acknowledge having diarrhea which she says is normal for her and has not changed in consistency from the past months. She says she takes laxatives to keep her stool loose as she suffers from chronic constipation and the delayed intestinal transit worsens her underlying abdominal pain. Speaking of which, she says her abdominal discomfort from the cancer is well uncontrolled and has not worsened since these symptoms began. She also reports chronic poor appetite. In the ER her lab work revealed a serum sodium of 127, WBC 35 and troponin 0.05. She was given a loading dose of aspirin and 2L NS. She is admitted for observation. Vitals: Reviewed General: Somewhat emaciated woman who appears older than her stated age sitting up in bed in NAD, conversant and pleasant. Skin: Warm, pale, dry. HEENT: Dry mucous membranes. (+) conjunctivae pallor. Neck: No lymphadenopathy. No JVD. No carotid bruits. No palpable thyroid. Chest: Normal thoracic expansion. Scattered wheezes and rhonchi. Heart: Normal S1 & S2; rhythmic. No rubs or murmurs. Abdomen: Non-distended, soft and non-tender to palpation. No peritoneal reaction. Extremities: No clubbing, cyanosis or edema. No calf tenderness. Normal distal pulses. Neurological: Awake, alert and oriented to person, place and time. No focal deficits. Psych: Affect appropriate. Assessment/Plan 1. Leukocytosis: High grade and unclear etiology. A differential I am concerned about is that it may be secondary to a medication she may be on or have been given of recent so I accessed her [facility] chart with her permission and noted that her WBC was normal (8) on 04/22/19 then it increased to 26.7 on 04/23/19, the very next day and this was the day she had received her first chemotherapy session. Her next session was on 05/07/19 however there was no WBC done that day. Given the normalcy of her leukocyte values on multiple occasions preceding the initiation of chemotherapy and subsequent derangement afterwards, it would not be untoward to conclude that there is a possible association and perhaps it is not infectious in etiology after all. Given her immune compromised condition we should be concerned for an infectious process despite not having significant other exteriorizing signs other than the diarrhea that she reports as being chronic and non-specific weakness. All the same, we should send stool for testing and also get a CT scan of her abdomen/pelvis for evaluation. She will receive a dose of empiric antibiotics in the ER in the interim. 2. Hyponatremia: Moderate. Review of old labs reveal she has a tendency towards this and the patient herself admits to having a value of 127 sometime this month at [facility] which I corroborated in her chart. In the past week though it was in the 131-133 range. Suspect secondary to her continued poor oral intake coupled with GI losses. It is accompanied by hypochloremia and has clinical signs of dehydration. This may also be the cause of her generalized weakness and dizziness. Will provide IV saline for resuscitation and recheck values. 3. Troponin elevation: No known prior CAD history. Clinically and electrocardiographically asymptomatic. Likely not associated with ACS. Will monitor. 4. COPD: The patient currently has signs of a mild exacerbation starting based on physical exam. Will give a nebulizer session tonight and place on prn. 5. Tobacco use: 5 minutes were spent counseling and educating the patient on this habit. banking services clerk and resources were made available. Nicotine patch ordered. 6. Hypertension: On losartan. 7. Diabetes: On metformin at home. Will place on insulin sliding scale in the interim. 8. Pancreatic cancer: Follows at [facility] for care. Reportedly localized to the pancreatic body and will need to undergo 2 more chemo sessions before repeat imaging to review to assess for shrinkage and thereafter feasibility of surgical resection. Past Med Surg Social Fam HX - Past Medical History Medical history: cancer, COPD, diabetes, hypertension, other Additional medical history: endometriosis Psychiatric history: no psych history - Past Surgical History Surgical History: appendectomy, hysterectomy Additional surgical history: tubal, skin graft L lower extremity, tumor on tounge removed - Social History Smoking Status: Current every day smoker Smokeless Tobacco Status: No Alcohol use: none Drug use: none Internal Medicine - H&P: Meds Atorvastatin Calcium [Lipitor] 20 mg PO DAILY 03/03/16 [History] Citalopram Hydrobromide [Celexa] 20 mg PO DAILY 03/03/16 [History] Losartan [Cozaar] 25 mg PO DAILY 03/03/16 [History] metFORMIN [Glucophage] 500 mg PO DAILY 03/03/16 [History] Ibuprofen [Motrin] 800 mg PO Q8HR PRN 07/02/18 [History] Albuterol Sulfate [Proventil Inhaler] 2 puff IH Q6H PRN 09/18/18 [History] Omeprazole [PriLOSEC] 20 mg PO DAILY 09/18/18 [History] Cyclobenzaprine [Flexeril] 10 mg PO TID #15 tablet 12/04/18 [Rx] Diclofenac Sodium [Voltaren] 4 gm TP QID #100 gm 12/04/18 [Rx] PredniSONE [Deltasone] 20 mg PO DAILY #12 tablet 12/04/18 [Rx] Allergy/AdvReac Type Severity Reaction Status Date / Time No Known Allergies Allergy Verified 12/04/18 11:07 All Systems PM: A 10-system review of systems was performed and is negative for pertinent findings except as documented above in the HPI.Family history reviewed and found non-contributory. - Constitutional Vitals: Temp Pulse Resp BP Pulse Ox 98.9 F 99 17 98/70 98 05/14/19 19:25 05/14/19 21:12 05/14/19 21:12 05/14/19 21:12 05/14/19 21:12 Exam: . Internal Med - H&P Results - Labs CBC & Chem 7: 05/14/19 20:10 05/14/19 20:10 Labs: Short CBC 05/14/19 Range/Units 20:10 WBC 35.0 H* (4.3-11.1) K/mcL Hgb 13.8 (11.5-15.4) g/dL Hct 39.7 (35.3-44.9) % Plt Count 203 (140-400) K/mcL Neutrophils # 32.2 H (1.6-8.9) K/mcL BMP 05/14/19 20:10 Sodium 127 L Potassium 3.6 Chloride 97 L Carbon Dioxide 22 L BUN 9 Creatinine 0.52 L Glucose 269 H Calcium 8.9 Cardiac Enzymes 05/14/19 Range/Units 20:10 Troponin I 0.05 H* (< 0.04) ng/mL Liver Function 05/14/19 Range/Units 20:10 Total Bilirubin 0.4 (0.3-1.0) mg/dL Direct Bilirubin 0.1 (0.0-0.2) mg/dL AST 12 L (13-39) Units/L ALT 16 (7-52) Units/L Alkaline Phosphatase 163 H (34-104) Units/L Albumin 3.8 (3.5-5.7) g/dL Urine 05/14/19 Range/Units 19:44 Urine Color Yellow (Yellow) Urine Clarity Clear (Clear) Urine pH 6.0 (5.0-8.0) pH Units Ur Specific [place] 1.015 (1.010-1.025) Urine Protein Negative (Neg-Trace) mg/dL Urine Glucose (UA) 250 H (Normal) mg/dL - Impressions ITS Impressions Chest X-Ray 05/14/19 19:37 IMPRESSION: No acute process. D/ / Brijesh Hightower MD / Brijesh Hightower MD Interpreting Provider: Brijesh Hightower MD - Time Spent With Patient Total time spent is greater than 50% in coordination of care (as documented) at patient's floor/unit and/or counseling patient: Greater than 35 minutes
[2019-05-15 00:24] LABS: Magnesium 1.9 mg/dL (1.6-2.6)
[2019-05-15] MEDS: Ondansetron 4 MG/2 ML VIAL IVP PRN ×2 (01:21→10:39)
[2019-05-15 05:45] LABS: Basophils # 0.1 K/mcL (0.0-0.2); Basophils % 0.5 %; Eosinophils % 4.7 %; Hematocrit 36.3 % (35.3-44.9); Immature Granulocytes % 1.6 % (0-4); Lymphocytes # 1.8 K/mcL (0.6-4.6); Lymphocytes % 8.2 %; Mean Corpuscular HGB Conc 33.6 g/dL (31.6-35.5); Mean Corpuscular Hemoglobin 33.1 pg (28.0-33.3); Mean Corpuscular Volume 98.4 fL (83.0-100.0); Mean Platelet Volume 11.5 fL (9.4-12.4); Monocytes # 1.1 K/mcL (0.0-1.3); Monocytes % 5.1 %; Neutrophils # 17.5 K/mcL (1.6-8.9); Platelet Count 176 K/mcL (140-400); Red Blood Count 3.69 M/mcL (3.82-4.97); Red Cell Distribution Width 11.9 % (11.5-14.5); Segmented Neutrophils % 79.9 %; White Blood Count 21.9 K/mcL (4.3-11.1)
[2019-05-15 05:49] LABS: Hemoglobin 12.2 g/dL (11.5-15.4)
[2019-05-15] MEDS ORDERED: *HR* Heparin 5,000 UNIT/ML VIAL SQ SCH (06:00)
[2019-05-15 06:05] LABS: Dohle Bodies Present (Not Present); Platelet Estimate Normal (Normal)
[2019-05-15 06:07] LABS: BUN/Creatinine Ratio 15 (6-26); Blood Urea Nitrogen 8 mg/dL (6-20); Calcium 8.2 mg/dL (8.6-10.3); Carbon Dioxide 23 mEq/L (23-29); Chloride 101 mEq/L (98-107); Glucose 310 mg/dL (70-105); Osmolality,Calculated 288 (280-300); Potassium 3.4 mEq/L (3.5-5.1); Sodium 134 mEq/L (136-145); eGFR For African Americans > 60 (> 60); eGFR For Non-African Americans > 60 (> 60)
[2019-05-15 06:46] LABS: Troponin I 0.05 ng/mL (< 0.04)
[2019-05-15] MEDS ORDERED: 0.9 % Sodium Chloride 1,000 ML IVC SCH (07:00)
[2019-05-15] MEDS ORDERED: Potassium Chloride Elixir 20 MEQ/15 ML UDC PO ONE (07:00)
[2019-05-15] MEDS: Insulin LISPRO 300 UNITS/3 ML VIAL SQ SCH ×2 (08:16→12:50)
[2019-05-15] MEDS ORDERED: *HR* OxyCODONE Immed Rel 5 MG TABLET PO PRN (10:04)
[2019-05-15] MEDS ORDERED: *HR* LORazepam 1 MG TABLET PO PRN (10:04)
[2019-05-15] MEDS ORDERED: Morphine Sulfate ER (12 HR) 30 MG TABLET.ER PO SCH (11:00)
[2019-05-15 12:17] LABS: Adenovirus F 40/41 PCR Not detected (Not detect); Astrovirus PCR Not detected (Not detect); C.difficile Toxin A/B Gene PCR Not detected (Not detect); Campylobacter by PCR Not detected (Not detect); Cryptosporidium by PCR Not detected (Not detect); Cyclospora cayetanensis PCR Not detected (Not detect); E. coli O157 by PCR Not detected (Not detect); Entamoeba histolytica PCR Not detected (Not detect); Enteroaggregative E.coli(EAEC) Not detected (Not detect); Enteropathogenic E.coli(EPEC) Not detected (Not detect); Enterotoxigenic E.coli (ETEC) Not detected (Not detect); Giardia lamblia PCR Not detected (Not detect); Norovirus GI/GII PCR Not detected (Not detect); Plesiomonas shigelloides PCR Not detected (Not detect); Rotavirus A PCR Not detected (Not detect); Salmonella PCR Not detected (Not detect); Sapovirus PCR Not detected (Not detect); Shig/EnteroinvasiveE coli EIEC Not detected (Not detect); Shigalike tox-prod E coli STEC Not detected (Not detect); Vibrio PCR Not detected (Not detect); Vibrio cholerae PCR Not detected (Not detect); Yersinia enterocolitica PCR Not detected (Not detect)
[2019-05-15 14:28] VITALS: BP 116/77
[2019-05-15] MEDS ORDERED: Ringers Solution, Lactated 1,000 ML IVC ONE (15:13)
--- NOTE | 2019-05-15 15:13 | Internal Med Progress Note ---
Hospitalist Progress Note - Encounter Date of Encounter: 05/15/19 Time of Encounter: 15:04 - Subjective Interval History: Feeling improved today but still with significant abdominal pain and weakness. - Exam Vitals: Temp Pulse Resp BP Pulse Ox 98.2 F 94 16 116/77 98 05/15/19 14:25 05/15/19 14:25 05/15/19 14:25 05/15/19 14:25 05/15/19 14:25 Exam: General: Ill-appearing and in no acute distress HEENT: No erythema of posterior pharynx. No exudates. Lymphatics: No mandibular or cervical lymphadenopathy Cardiovascular: RRR. No murmurs. No chest wall tenderness. Lungs: Clear to auscelltation bilaterally. Regular chest rise. Abdomen: Mild epigastric tenderness. No rebound or gaurding. Nl bowel sounds. Extremities: No edema. 2+ pulses radial and pedal pulses Skin: No rahses, abrasions, or contusions. Nl cap refill. Psych: Nl attention. A&Ox3 Neuro: thread marker II-XII intact. 5/5 strength. Sensation to light touch and pinprick intact. - Assessment and Plan (1) Weakness Current Visit: Yes Status: Acute Assessment and Plan: Patient with history of pancreatic adenocarcinoma on chemotherapy last received 1 week prior to admission presents with progressive weakness and fatigue in the setting of stable vitals, and a gastric tenderness on physical exam, leukocytosis 35, normal lipase, and CT with evidence of known pancreatic mass with surrounding edema. -Likely represents post chemotherapy weakness -Leukocytosis concerning, however, may be medication related: Was elevated to 26 07/ during outpatient therapy session On dexamethasone for chemotherapy which can cause leukocytosis Other chemotherapy is unknown (2) Leukocytosis, unspecified Current Visit: Yes Status: Acute (3) History of recent chemotherapy Current Visit: Yes Status: Acute (4) History of pancreatic cancer Current Visit: Yes Status: Acute DVT Prophylaxis: heparin Internal Medicine: Result - Labs CBC & Chem 7: 05/15/19 04:54 05/15/19 04:54 Labs: Short CBC 05/14/19 05/15/19 Range/Units 20:10 04:54 WBC 35.0 H* 21.9 H (4.3-11.1) K/mcL Hgb 13.8 12.2 D (11.5-15.4) g/dL Hct 39.7 36.3 (35.3-44.9) % Plt Count 203 176 (140-400) K/mcL Neutrophils # 32.2 H 17.5 H (1.6-8.9) K/mcL BMP 05/14/19 05/15/19 20:10 04:54 Sodium 127 L 134 L Potassium 3.6 3.4 L Chloride 97 L 101 Carbon Dioxide 22 L 23 BUN 9 8 Creatinine 0.52 L 0.55 L Glucose 269 H 310 H Calcium 8.9 8.2 L Cardiac Enzymes 05/14/19 05/15/19 Range/Units 20:10 04:54 Troponin I 0.05 H* 0.05 H* (< 0.04) ng/mL Liver Function 05/14/19 Range/Units 20:10 Total Bilirubin 0.4 (0.3-1.0) mg/dL Direct Bilirubin 0.1 (0.0-0.2) mg/dL AST 12 L (13-39) Units/L ALT 16 (7-52) Units/L Alkaline Phosphatase 163 H (34-104) Units/L Albumin 3.8 (3.5-5.7) g/dL Urine 05/14/19 Range/Units 19:44 Urine Color Yellow (Yellow) Urine Clarity Clear (Clear) Urine pH 6.0 (5.0-8.0) pH Units Ur Specific [place] 1.015 (1.010-1.025) Urine Protein Negative (Neg-Trace) mg/dL Urine Glucose (UA) 250 H (Normal) mg/dL - Impressions Impressions Chest X-Ray 05/14/19 19:37 IMPRESSION: No acute process. D/ / Brijesh Hightower MD / Brijesh Hightower MD Interpreting Provider: Brijesh Hightower MD Abdomen/Pelvis CT 05/14/19 22:55 IMPRESSION: Vague low attenuating lesion associated with the pancreatic body/neck measuring 3.1 x 3.1 cm may represent focal pancreatitis versus neoplasm. MRI/MRCP may be of benefit in further evaluating the pancreas. Ground-glass opacities in the lung bases may represent an infectious versus inflammatory process. D/ / 05/15/2019 07:51:51 Nilo Leahy / catrachita Interpreting Provider: Nilo Leahy Echocardiogram 05/15/19 06:57 Impressions: LVEF 65%. Normal LV chamber size, wall thickness and function. Mild left ventricular diastolic dysfunction. Normal right ventricular structure and function. No evidence of pulmonary hypertension. No significant valvular dysfunction. Left Ventricular Wall Motion: Rest Echo Findings All wall segments showed normal motion. Findings: Study Quality * Technically adequate exam. ECG Findings * Normal sinus rhythm. Left Ventricle * LVEF 65%. * Normal LV chamber size, wall thickness and function. * Mild left ventricular diastolic dysfunction. Right Ventricle * Normal right ventricular structure and function. Left Atrium * Normal left atrial size. Right Atrium * Normal right atrial size. Interatrial Septum * Interatrial septum not well evaluated. Aortic Valve * Aortic valve not well visualized. * No aortic regurgitation. * No aortic stenosis. Mitral Valve * Normal mitral valve structure and function. * No mitral stenosis. * No mitral regurgitation. Tricuspid Valve * Normal tricuspid valve structure and function. * Trace tricuspid regurgitation. * No evidence of pulmonary hypertension. Pulmonic Valve * Pulmonic valve not well visualized. * No pulmonic regurgitation. Aorta * Normally sized aortic root. Pericardium * The pericardium appears normal. IVC * Normal IVC dimensions and inspiratory collapse. Pulmonary Artery * Normal visualized portions of the main pulmonary artery. Consult Discharge Plan - Plan Referrals: Kevan Braswell MD [Primary Care Provider] -
--- NOTE | 2019-05-15 15:35 | Discharge Summary ---
Orders not resulted at time of discharge: Pending orders 05/14/19 20:26 Culture,Blood [] Stat Date of Encounter: 05/15/19 Time of Encounter: 15:32 - Discharge Diagnosis (1) Weakness Priority: Primary Status: Acute (2) Leukocytosis, unspecified Priority: Secondary Status: Acute Qualifiers: Leukocytosis type: leukemoid reaction Qualified Code(s): D72.823 - Leukemoid reaction (3) History of recent chemotherapy Priority: Secondary Status: Acute (4) History of pancreatic cancer Priority: Secondary Status: Acute Hospital course: Ms. Brady is a 53 year old female with history of pancreatic adenocarcinoma on chemotherapy last received 1 week prior to admission presented with progressive weakness and fatigue in the setting of stable vitals, leukocytosis to 35, normal lipase, and CT with evidence of known pancreatic mass with surrounding edema. Patient's condition most consistent with post chemotherapy weakness and leukoc ytosis 2/2 steroid use for chemotherapy. Leukocytosis was trending down at time of discharge and no source of infection could be found, however, discharged patient on Levaquin x5 days given medical uncertainty and immunosuppressed patient. Ideally would have monitored inpatient another 24hrs but patient insistent on leaving and has close follow-up. - Time Spent with Patient Total time spent providing and/or coordinating discharge services: - Discharge Medications Prescriptions: New levoFLOXacin [Levaquin] 750 mg PO DAILY #5 tablet Continued metFORMIN [Glucophage] 500 mg PO BID Losartan [Cozaar] 25 mg PO DAILY Atorvastatin Calcium [Lipitor] 20 mg PO DAILY Ibuprofen [Motrin] 800 mg PO Q8HR PRN PRN Reason: Pain Omeprazole [PriLOSEC] 20 mg PO DAILY Albuterol Sulfate [Proventil Inhaler] 2 puff IH Q6H PRN PRN Reason: Dyspnea Mirtazapine 7.5 mg PO HS Morphine Sulfate ER (12 HR) [MS Contin] 30 mg PO Q12HR Oxycodone HCl [Roxybond] 5 mg PO Q4H PRN PRN Reason: break thru pain LORazepam [Ativan] 1 mg PO Q6HR PRN PRN Reason: nausea/vomiting Dicyclomine Hcl [Bentyl] 20 mg PO QID PRN PRN Reason: abdominal pain Dexamethasone [Decadron] 8 mg PO DAILY Home Medications: Atorvastatin Calcium [Lipitor] 20 mg PO DAILY 03/03/16 [History] Losartan [Cozaar] 25 mg PO DAILY 03/03/16 [History] metFORMIN [Glucophage] 500 mg PO BID 03/03/16 [History] Ibuprofen [Motrin] 800 mg PO Q8HR PRN 07/02/18 [History] Albuterol Sulfate [Proventil Inhaler] 2 puff IH Q6H PRN 09/18/18 [History] Omeprazole [PriLOSEC] 20 mg PO DAILY 09/18/18 [History] Dexamethasone [Decadron] 8 mg PO DAILY 05/15/19 [History] Dicyclomine Hcl [Bentyl] 20 mg PO QID PRN 05/15/19 [History] LORazepam [Ativan] 1 mg PO Q6HR PRN 05/15/19 [History] Mirtazapine 7.5 mg PO HS 05/15/19 [History] Morphine Sulfate ER (12 HR) [MS Contin] 30 mg PO Q12HR 05/15/19 [History] Oxycodone HCl [Roxybond] 5 mg PO Q4H PRN 05/15/19 [History] levoFLOXacin [Levaquin] 750 mg PO DAILY #5 tablet 05/15/19 [Rx] Allergies/Adverse Reactions: Allergy/AdvReac Type Severity Reaction Status Date / Time latex Allergy See Verified 05/15/19 07:28 Comments Date of admission: 05/15/19 00:03 Primary care physician: Kevan Braswell MD Consults: 05/15/19 01:51 Consult to Nutrition [CONS] Routine Comment: Consulting Provider: NUTRITION Reason for Dietary Consult: MST Score - Constitutional Vitals: Temp Pulse Resp BP Pulse Ox 98.2 F 94 16 116/77 98 05/15/19 14:25 05/15/19 14:25 05/15/19 14:25 05/15/19 14:25 05/15/19 14:25 Exam: General: Ill-appearing and in no acute distress HEENT: No erythema of posterior pharynx. No exudates. Lymphatics: No mandibular or cervical lymphadenopathy Cardiovascular: RRR. No murmurs. No chest wall tenderness. Lungs: Clear to auscelltation bilaterally. Regular chest rise. Abdomen: Mild epigastric tenderness. No rebound or gaurding. Nl bowel sounds. Extremities: No edema. 2+ pulses radial and pedal pulses Skin: No rahses, abrasions, or contusions. Nl cap refill. Psych: Nl attention. A&Ox3 Neuro: assembly riveter II-XII intact. 5/5 strength. Sensation to light touch and pinprick intact. - Patient Status Disposition: Home, Self-Care Condition: Fair Functional capacity at discharge: independent ambulation Overall status at discharge: patient is progressing back to baseline - Discharge Instructions Follow Up With: Kevan Braswell MD [Primary Care Provider] - Forms: ED Satisfaction Letter - Diet and Activity Activity: increase activity as tolerated Diet: regular diet
[2019-05-15] MEDS ORDERED: levoFLOXacin 750 MG TABLET PO SCH (16:30)
[2019-05-15] MEDS ORDERED: Mirtazapine 15 MG TABLET PO SCH (21:00)
[2019-05-15] MEDS ORDERED: Insulin LISPRO 300 UNITS/3 ML VIAL SQ SCH (21:00)
--- NOTE | 2019-05-16 14:57 | Electrocardiograph Report ---
[address] [address] Test Date: 2019-05-14 Pat Name: Mine Brady Department: [id number] Room: 3A Gender: F Steel Handler: : [id number] Requested By: Leopoldo Cedillo Order Number: [id number] Reading MD: Michoacano Guzman Measurements Intervals [place] Rate: 110 P: 82 [place]: 140 QRS: 67 QRSD: 80 T: 67 QT: 325 QTc: 440 Interpretive Statements Sinus tachycardia Right atrial enlargement Electronically Signed On 05-16-2019 14:56:23 EDT by Michoacano Guzman
== END 2019-05-15 17:44 | disposition home or self-care (01) ==
LOC: EMEROOARM 19:17 → 3ANU 19:17 → SUATTDRO 05-15 00:03 → 3ANU 05-15 00:46
PROVIDERS: ADMIT Internal Medicine; ATTEND Internal Medicine